=== PATIENT | male | born 1980 | race Caucasian/White ===

== ENCOUNTER 2020-08-26 22:40 | Emergency (ER) | payer BC, SELFPAY ==
[2020-08-26 22:41] VITALS: BP 175/136; PULSE 110; RESP 16; TEMP 36.1; O2SAT 99; BMI 26.5
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
== END 2020-08-27 00:26 | disposition home or self-care (01) ==
PROVIDERS: Emergency Provider Emergency Medicine; PCP Physician Assistant
DX: R04.0 Epistaxis (principal); F10.129 Alcohol abuse with intoxication, unspecified; V57.6XXA Passenger in pick-up truck or van injured in collision with fixed or stationary object in traffic accident, initial encounter; Y93.9 Activity, unspecified; Y99.9 Unspecified external cause status; Y92.410 Unspecified street and highway as the place of occurrence of the external cause; Y90.9 Presence of alcohol in blood, level not specified
CPT/HCPCS: 99284

== ENCOUNTER 2022-08-12 16:58 | Emergency (ER) | payer BC, SELFPAY ==
[2022-08-12 16:59] VITALS: BP 179/130
[2022-08-12 17:00] VITALS: BP 192/121; PULSE 116; RESP 18; TEMP 36.4; O2SAT 99; BMI 30.3
--- NOTE | 2022-08-12 17:11 | EDS_ITS ---
HPI <KEHINDE Gilbert - Last Filed: 08/12/22 18:13> History of Present Illness Chief Complaint: Hypertension Narrative Narrative: 42-year-old male with urgent care for 3 days of cough and 1 day of right ear pain. When he checked his vital signs he was hypertensive so they sent him to the ER. Patient denies history of hypertension. He took Robitussin a week ago but otherwise has not been taking cough or cold medication. He denies headache, chest pain, or shortness of breath. PFSH <KEHINDE Gilbert - Last Filed: 08/12/22 18:13> PFSH Home Medications amoxicillin 500 mg tablet 500 mg PO TID 7 days #21 tabs 08/12/22 [Rx Last Taken Unknown] Allergy/AdvReac Type Severity Reaction Status Date / Time No Known Allergies Allergy Verified 08/12/22 17:03 Social History Smoking Status: Never smoker ROS <KEHINDE Gilbert Last Filed: 08/12/22 18:13> ROS ED ROS Narrative Constitutional: Negative for fever, chills, malaise. ENT: Positive for ear pain. Negative for sore throat. CVS: Negative for chest pain. Respiratory: Positive for cough. Negative for shortness of breath. GI: Negative for abdominal pain, nausea, vomiting. Neuro: Negative for headache. EXAM <KEHINDE Gilbert - Last Filed: 08/12/22 18:13> Physical Exam Narrative Exam Narrative: CONST: Patient sitting in no acute distress. EYES: Normal inspection. ENT: Normal oropharynx, moist mucous membranes. Nares clear, normal TMs bilaterally. No tenderness of the tragus or auricle and no signs of otitis externa, no mastoid erythema swelling or tenderness. NECK: Normal inspection. No meningismus. RESP: No respiratory distress, CTAB. CVS: Regular rate and rhythm, no murmur, no gallop. SKIN: Color normal, no rash, warm, dry, intact. EXTREMITIES: Normal appearance, no pedal edema. NEURO: Oriented x4. PSYCH: Normal affect. Const Vital Signs: 08/12/22 17:00 08/12/22 16:59 08/12/22 18:02 Temperature 97.6 F L Temperature Source Temporal Pulse Rate 116 H Respiratory Rate 18 Respiratory Effort Normal Non-Labored Respiratory Pattern Normal Blood Pressure 192/121 H 179/130 H Blood Pressure Mean 144 146 Pulse Ox 99 Oxygen Delivery Method Room Air <Dr. Felton Gonzalez MD - Last Filed: 08/12/22 17:55> Physical Exam Const Vital Signs: 08/12/22 17:00 08/12/22 16:59 08/12/22 18:02 Temperature 97.6 F L Temperature Source Temporal Pulse Rate 116 H Respiratory Rate 18 Respiratory Effort Normal Non-Labored Respiratory Pattern Normal Blood Pressure 192/121 H 179/130 H Blood Pressure Mean 144 146 Pulse Ox 99 Oxygen Delivery Method Room Air MDM <KEHNIDE Gilbert - Last Filed: 08/12/22 18:13> MDM MDM Narrative Medical decision making narrative: Patient has had recent URI symptoms and went to urgent care for right ear pain but was sent here due to elevated blood pressure. BP 179/130, heart rate 116, otherwise normal vital signs. His right TM is erythematous as compared to left consistent with AOM. Heart is rapid but regular with no murmurs. Lungs clear. Abdomen soft and nontender. Patient denied known history of hypertension but on review of his prior visits in 2016 and 2020 he did have elevated systolic pressures. The only BMP on file showed a creatinine of 1.7. I rechecked a BMP in today renal function is normal at 1.28. Blood pressures have improved to 140s-150s/80s systolic. I feel he can follow-up with his primary care to have this rechecked and does not need emergently started on medication. I prescribed amoxicillin for his right otitis media infection and he was discharged in stable condition. Differential: URI, otitis media, otitis externa, mastoiditis Test considered but not ordered: Patient has no chest pain or shortness of breath so no indication for cardiac enzymes, blood pressure is asymptomatic I have personally performed a face to face assessment of the patient and have reviewed the PAULA Note. I performed a substantive portion of the visit including all aspects of the following. 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 Patient went to an urgent care today. He has right ear discomfort. History of ear infections in the past and prior ear tubes. His blood pressure that he noticed was elevated there and is seen in the emergency department. Says blood pressures been elevated the past but he is never been told to go on medication. States he had an earache for about the last 24 to 36 hours. Exam is [39-year-old male no acute distress. Initial blood pressure 179/130 currently is 149/98. He said he does get anxious in doctors offices. HEENT exam right TM erythematous dull mildly swollen. Left TM scarred but not acutely infected. Both canals are unremarkable. Posterior pharynx normal. Neck nontender no lymphadenopathy. Lungs clear. Heart regular rhythm rate about 110. No murmur. Chest wall nontender. Abdomen soft nontender. Moving all 4 extremities. Neurologically is awake and alert. Medical Decision Making [patient with right otitis media on exam will be treated amoxicillin 500 3 times daily for a week. I will recheck his blood pressure. If it remains elevated we may start him on lisinopril and have him follow-up with his primary care provider. At minimum he will need followed up to determine if he needs started on blood pressure medications or not.] Other additions or changes: [None] Lab Data Labs: Laboratory Results - last 24 hr 08/12/22 17:33 Sodium 136 Potassium 3.7 Chloride 104 Carbon Dioxide 29.0 Anion Gap 3 L BUN 11 Creatinine 1.28 Estim Creat Clear Calc 69.57 Est GFR (MDRD) Af Amer 79 Est GFR (MDRD) Non-Af 65 BUN/Creatinine Ratio 8.6 L Glucose 116 H Calcium 8.8 <Dr. Felton Gonzalez MD - Last Filed: 08/12/22 17:55> [facility] MDM Narrative Medical decision making narrative: Patient has had recent URI symptoms and went to urgent care for right ear pain but was sent here due to elevated blood pressure. BP 179/130, heart rate 116, otherwise normal vital signs. His HEENT exam is unremarkable. Heart is rapid but regular with no murmurs. Lungs clear. Abdomen soft and nontender. Patient denied known history of hypertension but on review of his prior visits in 2016 and 2020 he did have elevated systolic pressures. The only BMP on file showed a creatinine of 1.7. Plan will be to monitor his vital signs and recheck a BMP today. I have personally performed a face to face assessment of the patient and have reviewed the PAULA Note. I performed a substantive portion of the visit including all aspects of the following. 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 Patient went to an urgent care today. He has right ear discomfort. History of ear infections in the past and prior ear tubes. His blood pressure that he noticed was elevated there and is seen in the emergency department. Says blood pressu res been elevated the past but he is never been told to go on medication. States he had an earache for about the last 24 to 36 hours. Exam is [39-year-old male no acute distress. Initial blood pressure 179/130 currently is 149/98. He said he does get anxious in doctors offices. HEENT exam right TM erythematous dull mildly swollen. Left TM scarred but not acutely infected. Both canals are unremarkable. Posterior pharynx normal. Neck nontender no lymphadenopathy. Lungs clear. Heart regular rhythm rate about 110. No murmur. Chest wall nontender. Abdomen soft nontender. Moving all 4 extremities. Neurologically is awake and alert. Medical Decision Making [patient with right otitis media on exam will be treated amoxicillin 500 3 times daily for a week. I will recheck his blood pressure. If it remains elevated we may start him on lisinopril and have him follow-up with his primary care provider. At minimum he will need followed up to determine if he needs started on blood pressure medications or not.] Other additions or changes: [None] Lab Data Labs: Laboratory Results - last 24 hr 08/12/22 17:33 Sodium 136 Potassium 3.7 Chloride 104 Carbon Dioxide 29.0 Anion Gap 3 L BUN 11 Creatinine 1.28 Estim Creat Clear Calc 69.57 Est GFR (MDRD) Af Amer 79 Est GFR (MDRD) Non-Af 65 BUN/Creatinine Ratio 8.6 L Glucose 116 H Calcium 8.8 Discharge Plan Triage Chief Complaint: Hypertension ED Midlevel Provider: Mariaelena Nunez ED Provider: Felton Gonzalez Dx/Rx/DC Orders Clinical Impression: Acute right otitis media, Hypertension Instructions: ED Otitis Media Antibiotic ... Prescriptions: New amoxicillin 500 mg tablet 500 mg PO TID 7 Days Qty: 21 0RF Primary Care Provider: Kinsey Rubi Referrals: Kinsey Rubi, KEHINDE [Primary Care Provider] - 1 Week Activity Restrictions/Additional Instructions: I prescribed antibiotics for right ear infection. Your blood pressure came down to [place] normal range. Your blood work looks normal. Please see your primary care doctor this week to have them recheck your blood pressure. Disposition Disposition: Home, Self Care
[2022-08-12 18:06] LABS: Anion Gap 3 (5-15); BUN 11 mg/dL (7-18); BUN/Creat Ratio 8.6 RATIO (10-20); Calcium,Total 8.8 mg/dL (8.5-10.1); Chloride 104 mmol/L (98-107); Creatinine, Serum 1.28 mg/dL (0.70-1.30); EST Glomerular Filtration Rate 65 mL/min (>60); Est Glom Filt Rate - Afr Amer 79 mL/min (>60); Estimated Creatinine Clearance 69.57 ml/min; Glucose 116 mg/dL (74-106); Potassium 3.7 mmol/L (3.5-5.1); Sodium Level 136 mmol/L (136-145)
[2022-08-12] MEDS: AMOXICILLIN 500 MG CAPSULE PO (18:23)
[2022-08-12 18:26] VITALS: RESP 18
== END 2022-08-12 18:28 | disposition home or self-care (01) ==
PROVIDERS: Physician Assistant; Emergency Provider Emergency Medicine; PCP Physician Assistant; Visit Provider Emergency Medicine
DX: H66.91 Otitis media, unspecified, right ear (principal); I10 Essential (primary) hypertension; R05.9 Cough, unspecified
CPT/HCPCS: 80048; 99284; A4216